=== PATIENT | female | born 1975 | race Caucasian/White ===

== ENCOUNTER 2024-09-02 12:18 | Emergency (ER) | payer MEDICAID ==
[~2024-09-02] VITALS: Ht 160 cm; Wt 77.0 kg
[2024-09-02 12:35] VITALS: O2SAT 96
[2024-09-02] MEDS ORDERED: IBUP-2029 MT (14:53)
[2024-09-02] MEDS ORDERED: T3 PO (14:53)
[2024-09-02] MEDS: ACETAMINOPHEN WITH CODEINE 300/30MG TABLET PO ONE (15:05)
[2024-09-02 15:45] VITALS: BP 132/74; PULSE 89; RESP 20; TEMP 36.8; O2SAT 97
== END 2024-09-02 15:46 | disposition home or self-care (01) ==
LOC: ER 12:18
DX: S82.142A Displaced bicondylar fracture of left tibia, initial encounter for closed fracture (principal); Z79.899 Other long term (current) drug therapy; Z98.890 Other specified postprocedural states; W01.0XXA Fall on same level from slipping, tripping and stumbling without subsequent striking against object, initial encounter; Y93.89 Activity, other specified; Y92.89 Other specified places as the place of occurrence of the external cause; Y99.8 Other external cause status
CPT/HCPCS: 29505; 73560; 99283